=== PATIENT | male | born 1975 | race Two or more races ===

== ENCOUNTER 2024-09-29 10:31 | Emergency (ER) | payer OTHER ==
[~2024-09-29] VITALS: Ht 175.3 cm; Wt 80.0 kg
[2024-09-29 10:37] VITALS: BP 126/51; PULSE 84; RESP 16; TEMP 98; O2SAT 100
[2024-09-29] MEDS ORDERED: KETOROLAC 30MG/ML VIAL IM ONE (10:45)
[2024-09-29] MEDS ORDERED: ACETAMINOPHEN 325MG TABLET PO ONE (10:45)
[2024-09-29] MEDS ORDERED: NAPR-681 MT (12:59)
== END 2024-09-29 15:09 | disposition home or self-care (01) ==
LOC: ER 10:47
DX: R22.42 Localized swelling, mass and lump, left lower limb (principal); Z79.1 Long term (current) use of non-steroidal anti-inflammatories (NSAID)
CPT/HCPCS: 99283; 29505; 73560; J1885